=== PATIENT | female | born 1965 | race African-American/Black ===

== ENCOUNTER 2018-11-27 21:27 | Emergency (ER) | payer OTHER ==
[2018-11-27 21:47] LABS: Urine Blood NEGATIVE (NEG); Urine Glucose NEGATIVE (NEG); Urine Protein NEGATIVE (NEG); Urine Specific Gravity 1.015 (1.005-1.030)
[2018-11-27 22:30] LABS: Protime INR 1.02
[2018-11-27 22:40] LABS: Absolute Lymphocytes (CBC) 2.4 K/uL (0.7-4.9); Basophils % 0.3 % (0-1.3); Hematocrit 41.2 % (36.0-45.0); MPV 9.7 fL (7.6-11.3); RBC Red Blood Cell Count 4.56 M/uL (3.86-4.86)
[2018-11-27 22:41] LABS: BUN Blood Urea Nitrogen 5 mg/dL (7-18); Bicarbonate 24 mmol/L (21-32); Glucose Level 149 mg/dL (74-106); Potassium 3.9 mmol/L (3.5-5.1); Sodium Level 140 mmol/L (136-145)
[2018-11-27 23:20] LABS: Blood Morphology Comment NOT SEEN (NOT SEEN); Platelet Estimate ADEQ
--- NOTE | 2018-11-27 23:39 | ER ---
Nurse's Notes [facility] Name: Rose Sheppard Age: 53 yrs Sex: Female : 1965 Arrival Date: 11/27/2018 Time: 21:28 Bed 15 Private MD: Diagnosis: periperhal neuropathy Presentation: 11/27 21:20 Presenting complaint: EMS states: "We were called from [facility] because patient cc3 started to have tingling sensation to her left arm and left leg at 1530H this afternoon, patient denies weakness" Patient said her tingling sensation is lessened now, feels better and she walked with steady gait from EMS stretcher to bed. Transition of care: [facility]. Onset of symptoms was November 27, 2018 at 15:30. Risk Assessment: Do you want to hurt yourself or someone else? Patient reports no desire to harm self or others. Initial Sepsis Screen: Does the patient meet any 2 criteria? No. Patient's initial sepsis screen is negative. Does the patient have a suspected source of infection? No. Patient's initial sepsis screen is negative. Care prior to arrival: None. 21:20 Method Of Arrival: EMS: [facility] cc3 21:20 Acuity: TYREE 3 cc3 21:20 No acute neurological deficit is noted. The patients blood glucose was checked before cc3 arriving to the hospital and was found to be normal. Triage Assessment: 21:20 General: Appears in no apparent distress. comfortable, Behavior is calm, cooperative, cc3 appropriate for age. Pain: Denies pain. EENT: No signs and/or symptoms were reported regarding the EENT system. Neuro: Level of Consciousness is awake, alert, obeys commands, Oriented to person, place, time, situation, Appropriate for age Chemist are equal bilaterally Moves all extremities. Full function Gait is steady, Speech is normal, Facial symmetry appears normal, Pupils are PERRLA, Intact. Cardiovascular: Denies chest pain, Heart tones S1 S2 present Capillary refill < 3 seconds Patient's skin is warm and dry. Rhythm is sinus rhythm. Respiratory: Airway is patent Respiratory effort is even, unlabored, Respiratory pattern is regular, symmetrical. GI: Abdomen is round non-distended. : No signs and/or symptoms were reported regarding the genitourinary system. Derm: Skin is intact, is healthy with good turgor, Skin is normal, black. Musculoskeletal: Circulation, motion, and sensation intact. Range of motion: intact in all extremities. 21:20 The onset of the patients symptoms was November 27, 2018 at 15:30. Neuro: Reports cc3 tingling sensation to left arm and left leg that started at 1530H today but no weakness. 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 N/A - Hysterectomy cc3 Stroke Activation: Physician: Stroke Attending; Name: ; Notified At: ; Arrived At: Physician: Chief Stroke Resident; Name: ; Notified At: ; Arrived At: Physician: Stroke Resident; Name: ; Notified At: ; Arrived At: Physician: ED Attending; Name: ; Notified At: ; Arrived At: Physician: ED Resident; Name: ; Notified At: ; Arrived At: 21:20 N/A cc3 Historical: - Allergies: 21:20 PENICILLINS; cc3 - Home Meds: 21:20 Metformin Oral [Active]; Lantus Sub-Q [Active]; Humalog Sub-Q [Active]; Wellbutrin Oral cc3 [Active]; - PMHx: 21:20 Diabetes - IDDM; Schizophrenia; cocaine abuse - last use was 11/07/18; cc3 - PSHx: 21:20 Hysterectomy; cc3 - Immunization history:: Adult Immunizations up to date. - Social history:: Smoking status: Patient uses tobacco products, denies chronic smoking, but will smoke occasionally. - Ebola Screening: : No symptoms or risks identified at this time. Screenin:20 Abuse screen: Denies threats or abuse. Denies injuries from another. Nutritional cc3 screening: No deficits noted. Tuberculosis screening: No symptoms or risk factors identified. Fall Risk Ambulatory Aid- None/Bed Rest/Nurse Assist (0 pts). Gait- Normal/Bed Rest/Wheelchair (0 pts) Mental Status- Oriented to own ability (0 pts). Assessment: 21:20 General: see triage assessment. cc3 21:20 Patient has been NPO before screening. The patient is alert, and able to follow cc3 commands. The patient does not exhibit slurred or garbled speech. The patient is not exhibiting difficulty speaking. The patient does not exhibit difficulty understanding words. The patient is able to swallow own secretions with no drooling or need for suction. Patient tolerated one teaspoon of water. No drooling, immediate coughing, gurgling, or clearing of the throat was noted. The patient tolerated 90mL of water. No drooling, immediate coughing, gurgling, or clearing of the throat was noted. The patient passed the bedside swallow screening. Oral medications may be given as ordered. Contact Physician for further diet orders. Provider notified of bedside swallow screening results: Mart Albrecht MD. 21:20 VAN Scoring: Arm Drift: Patients demonstrates NO arm weakness. Patient is VAN Negative. cc3 Visual Disturbance: No visual disturbance noted. Aphasia: No aphasia noted. Neglect: No neglect noted. T-PA (Activase) Screening: Contraindications: Other: negative symptoms. 22:25 Reassessment: Patient appears in no apparent distress at this time. Patient and/or cc3 family updated on plan of care and expected duration. Pain level reassessed. Patient is alert, oriented x 3, equal unlabored respirations, skin warm/dry/pink. Patient denies pain at this time. 23:50 Reassessment: Patient appears in no apparent distress at this time. Patient and/or cc3 family updated on plan of care and expected duration. Pain level reassessed. Patient is alert, oriented x 3, equal unlabored respirations, skin warm/dry/pink. Dr. Albrecht discharged the patient home, no prescription given. IV cannula removed, ase certified technician Santana said she already called [facility] and spoke with staff named Soni and informed her that the patient is discharged home and needs transport going back there and they said they'll provide patient transport, patient and her friend Tete informed and said they'll wait for their transport in the waiting area. Patient left ER to wait for her transport in the [facility] vitally stable and ambulatory with her friend. No valuables left in the patient's room. Patient denies pain at this time. Patient states feeling better. Patient states symptoms have improved. Vital Signs: 21:20 BP 153 / 104; Pulse 77; Resp 17 S; Temp 98.1(O); Pulse Ox 100% on R/A; Weight 64.41 kg cc3 (R); Height 5 ft. 3 in. (160.02 cm) (R); Pain 0/10; 22:25 BP 143 / 108; Pulse 78; Resp 19 S; Pulse Ox 100% on R/A; cc3 22:35 BP 106 / 93; Pulse 73; Resp 13 S; Pulse Ox 100% on R/A; cc3 23:30 BP 138 / 86; Pulse 72; Resp 17 S; Pulse Ox 100% on R/A; cc3 21:20 Body Mass Index 25.15 (64.41 kg, 160.02 cm) cc3 Castro Coma Score: 11/28 04:56 Eye Response: spontaneous(4). Verbal Response: oriented(5). Motor Response: obeys tw4 commands(6). Total: 15. NIH Stroke Scale Scores: 11/27 21:20 NIHSS Score: 0 cc3 21:20 NIHSS Score: 0 cc3 ED Course: 21:20 Patient has correct armband on for positive identification. Placed in gown. Bed in low cc3 position. Call light in reach. Side rails up X2. long chain beamer on. Pulse ox on. NIBP on. 21:20 Arm band placed on right wrist. EKG completed in triage. Results shown to MD. cc3 21:28 Patient arrived in ED. ds1 21:28 Mart Albrecht MD is Attending Physician. tw4 21:32 Sheron Ledesma is Primary Nurse. cc3 21:45 Triage completed. cc3 21:53 CT completed. Patient tolerated procedure well. Patient moved back from CT. mw3 21:56 CT Stroke Brain w/o Contrast In Process Unspecified. EDMS 22:08 Stroke CXR 1 View In Process Unspecified. EDMS 22:15 Inserted saline lock: 22 gauge in left antecubital area, using aseptic technique. Blood cc3 collected. 23:50 No provider procedures requiring assistance completed. IV discontinued, intact, cc3 bleeding controlled, No redness/swelling at site. Pressure dressing applied. Administered Medications: No medications were administered Point of Care Testing: Blood Glucose: 22:03 Blood Glucose: 148 mg/dL; cc3 Ranges: Outcome: 23:38 Discharge ordered by . tw4 23:50 Discharged to home ambulatory, with friend. cc3 23:50 Condition: stable 23:50 Discharge instructions given to patient, Instructed on discharge instructions, follow up and referral plans. Demonstrated understanding of instructions, follow-up care. 23:59 Patient left the ED. cc3 NIH Stroke Scale - NIH Stroke Score Date: 11/27/2018 Time: 21:20 Total Score = 0 1a. Level of Consciousness (LOC) - 0(Alert) 1b. Level of Consciousness (LOC) (Year \\T\\ Age) - 0(Both) 1c. LOC Commands (Open \\T\\ Closes Eyes/Engine Turner) - 0(Both) 2. Best Gaze (Lateral Gaze Paresis) - 0(Normal) 3. Visual Field Loss - 0(No visual loss) 4. Facial Palsy - 0(Normal) 5a. Left Arm: Motor (10-second hold) - 0(No drift) 5b. Right Arm: Motor (10-second hold) - 0(No drift) 6a. Left Leg: Motor (5-second hold - always test supine) - 0(No drift) 6b. Right Leg: Motor (5-second hold - always test supine) - 0(No drift) 7. Limb Ataxia (finger/nose \\T\\ heel/guzmán - test with eyes open) - 0(Absent) 8. Sensory Loss (pinprick arms/legs/face) - 0(Normal) 9. Best Language: Aphasia (description/naming/reading) - 0(No aphasia) 10. Dysarthria (speech clarity - read or repeat words) - 0(Normal) 11. Extinction and Inattention (visual/tactile/auditory/spatial/personal) - 0(No abnormality) Initials: cc3 NIH Stroke Scale - NIH Stroke Score Date: 11/27/2018 Time: 21:20 Total Score = 0 1a. Level of Consciousness (LOC) - 0(Alert) 1b. Level of Consciousness (LOC) (Year \\T\\ Age) - 0(Both) 1c. LOC Commands (Open \\T\\ Closes Eyes/Engine Turner) - 0(Both) 2. Best Gaze (Lateral Gaze Paresis) - 0(Normal) 3. Visual Field Loss - 0(No visual loss) 4. Facial Palsy - 0(Normal) 5a. Left Arm: Motor (10-second hold) - 0(No drift) 5b. Right Arm: Motor (10-second hold) - 0(No drift) 6a. Left Leg: Motor (5-second hold - always test supine) - 0(No drift) 6b. Right Leg: Motor (5-second hold - always test supine) - 0(No drift) 7. Limb Ataxia (finger/nose \\T\\ heel/guzmán - test with eyes open) - 0(Absent) 8. Sensory Loss (pinprick arms/legs/face) - 0(Normal) 9. Best Language: Aphasia (description/naming/reading) - 0(No aphasia) 10. Dysarthria (speech clarity - read or repeat words) - 0(Normal) 11. Extinction and Inattention (visual/tactile/auditory/spatial/personal) - 0(No abnormality) Initials: cc3 Signatures: Dispatcher [employer] [facility] Miranda Reyna ds1 Mart Albrecht MD MD tw4 Gabriela Martin mw3 Sheron Ledesma cc3
--- NOTE | 2018-11-27 23:40 | EDPHYS ---
Physician Documentation [facility] Name: Rose Sheppard Age: 53 yrs Sex: Female : 1965 Arrival Date: 11/27/2018 Time: 21:28 Bed 15 Private MD: ED Physician Mart Albrecht HPI: 11/28 04:38 This 53 yrs old Black Female presents to ER via EMS with complaints of tingling tw4 sensation to her left arm and leg. 04:38 The patient presents to the emergency department with paresthesias of the left lower tw4 extremity, that is mild, left upper extremity, that is mild. Onset: The symptoms/episode began/occurred 6 hour(s) ago, and improved today. Context: occurred at home. Associated signs and symptoms: The patient has no apparent associated signs or symptoms. Severity of symptoms: At their worst the symptoms were very mild in the emergency department the symptoms have resolved and did so earlier today, have improved. Patient's baseline: Neuro: alert and fully oriented, Motor: no deficits, Ambulation: walks without assistance, Speech: normal. Current symptoms: Currently, the patient is not experiencing any symptoms, the patient feels back to baseline, no decreased level of consciousness, no confusion, no dysphasia, no headache, no paralysis, no visual changes. The patient has not experienced similar symptoms in the past. 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 - Social history:: Smoking status: Patient uses tobacco products, denies chronic smoking, but will smoke occasionally. - Ebola Screening: : No symptoms or risks identified at this time. ROS: 11/28 04:38 Constitutional: Negative for fever, chills, and weight loss, Eyes: Negative for injury, tw4 pain, redness, and discharge, Cardiovascular: Negative for chest pain, palpitations, and edema, Respiratory: Negative for shortness of breath, cough, wheezing, and pleuritic chest pain, Back: Negative for injury and pain. 04:38 MS/Extremity: Negative for injury and deformity, Skin: Negative for injury, rash, and tw4 discoloration. 04:38 Neuro: Positive for tingling, Negative for altered mental status, dizziness, gait disturbance, headache, speech changes, syncope, near syncope, visual changes, weakness. Exam: 04:38 Constitutional: This is a well developed, well nourished patient who is awake, alert, tw4 and in no acute distress. Head/Face: Normocephalic, atraumatic. Chest/axilla: Normal chest wall appearance and motion. Nontender with no deformity. No lesions are appreciated. Cardiovascular: Regular rate and rhythm with a normal S1 and S2. No gallops, murmurs, or rubs. Normal PMI, no JVD. No pulse deficits. Respiratory: Lungs have equal breath sounds bilaterally, clear to auscultation and percussion. No rales, rhonchi or wheezes noted. No increased work of breathing, no retractions or nasal flaring. Abdomen/GI: Soft, non-tender, with normal bowel sounds. No distension or tympany. No guarding or rebound. No evidence of tenderness throughout. Back: No spinal tenderness. No costovertebral tenderness. Full range of motion. Skin: Warm, dry with normal turgor. Normal color with no rashes, no lesions, and no evidence of cellulitis. MS/ Extremity: Pulses equal, no cyanosis. Neurovascular intact. Full, normal range of motion. Neuro: Awake and alert, GCS 15, oriented to person, place, time, and situation. Cranial nerves II-XII grossly intact. Motor strength 5/5 in all extremities. Sensory grossly intact. Cerebellar exam normal. Normal gait. Vital Signs: 11/27 21:20 BP 153 / 104; Pulse 77; Resp 17 S; Temp 98.1(O); Pulse Ox 100% on R/A; Weight 64.41 kg cc3 (R); Height 5 ft. 3 in. (160.02 cm) (R); Pain 0/10; 22:25 BP 143 / 108; Pulse 78; Resp 19 S; Pulse Ox 100% on R/A; cc3 22:35 BP 106 / 93; Pulse 73; Resp 13 S; Pulse Ox 100% on R/A; cc3 23:30 BP 138 / 86; Pulse 72; Resp 17 S; Pulse Ox 100% on R/A; cc3 21:20 Body Mass Index 25.15 (64.41 kg, 160.02 cm) cc3 NIH Stroke Scale Scores: 21:20 NIHSS Score: 0 cc3 21:20 NIHSS Score: 0 cc3 Erie Coma Score: 11/28 04:56 Eye Response: spontaneous(4). Verbal Response: oriented(5). Motor Response: obeys tw4 commands(6). Total: 15. MDM: 11/27 21:34 Patient medically screened. tw4 11/28 04:38 Data reviewed: vital signs, nurses notes. Data interpreted: Pulse oximetry: tw4 Interpretation: normal. Counseling: I had a detailed discussion with the patient and/or guardian regarding: the historical points, exam findings, and any diagnostic results supporting the discharge/admit diagnosis. Special discussion: I discussed with the patient/guardian in detail that at this point there is no indication for admission to the hospital. It is understood, however, that if the symptoms persist or worsen the patient needs to return immediately for re-evaluation. 04:56 ED course: CT head negative. tw4 11/27 21:33 Order name: Basic Metabolic Panel tw4 11/27 21:33 Order name: CBC with Diff; Complete Time: 23:32 tw4 11/27 23:33 Interpretation: Normal except: LYM% 46.0. tw4 11/27 21:33 Order name: Protime (+inr); Complete Time: 23:32 tw4 11/27 23:33 Interpretation: Within normal limits: PT 12.0. tw4 11/27 21:33 Order name: Ptt, Activated; Complete Time: 23:32 tw4 11/27 23:35 Interpretation: Within normal limits. tw4 11/27 21:34 Order name: Basic Metabolic Panel; Complete Time: 23:32 EDMS 11/27 23:33 Interpretation: Normal except: CL 108; GLUC 149; BUN 5. tw4 11/27 21:43 Order name: Urine Dipstick--Ancillary (enter results); Complete Time: 23:32 mt 11/27 23:33 Interpretation: Normal except: UESTR 3+. 11/27 21:33 Order name: CT Stroke Brain w/o Contrast 11/27 21:33 Order name: Stroke CXR 1 View 11/27 21:33 Order name: Accucheck; Complete Time: 22:04 tw4 11/27 21:33 Order name: Cardiac monitoring; Complete Time: 21:55 4 11/27 21:33 Order name: EKG - Nurse/Tech; Complete Time: 21:55 4 11/27 21:33 Order name: IV Saline Lock; Complete Time: 22:23 tw4 11/27 22:42 Order name: Manual Differential; Complete Time: 23:32 EDMS 11/27 23:33 Interpretation: Normal except: SEGS 36; LYM 50. 11/27 21:33 Order name: Labs collected and sent; Complete Time: 22:23 tw4 11/27 21:33 Order name: NPO; Complete Time: 21:55 4 11/27 21:33 Order name: O2 Per Protocol; Complete Time: 21:55 4 11/27 21:33 Order name: O2 Sat Monitoring; Complete Time: 21:56 11/27 21:33 Order name: Stroke Swallow Screen; Complete Time: 22:00 tw4 EC:56 Rate is 73 beats/min. Rhythm is regular, Normal Sinus Rhythm. Left axis deviation tw4 noted. DE interval is normal. QRS interval is normal. QT interval is normal. No Q waves. T waves are Normal. No ST changes noted. Clinical impression: NSR w/ Non-specific ST/T Changes. Interpreted by me. Reviewed by me. Administered Medications: No medications were administered Point of Care Testing: Blood Glucose: 11/27 22:03 Blood Glucose: 148 mg/dL; cc3 Ranges: Critical Glucose Levels:Adult <50 mg/dl or >400 mg/dl <40 mg/dl or >180 mg/dl Disposition: 11/27/18 23:38 Discharged to Home. Impression: periperhal neuropathy. - Condition is Stable. - Discharge Instructions: Diabetic Neuropathy, Focal Neuropathy. - Medication Reconciliation Form, Thank You Letter, Antibiotic Education, Prescription Opioid Use form. - Follow up: Private Physician; When: Upon discharge from the Emergency Department; Reason: If symptoms return, Recheck today's complaints, Continuance of care. - Problem is new. - Symptoms have improved. NIH Stroke Scale - NIH Stroke Score Date: 11/27/2018 Time: 21:20 Total Score = 0 1a. Level of Consciousness (LOC) - 0(Alert) 1b. Level of Consciousness (LOC) (Year \T\ Age) - 0(Both) 1c. LOC Commands (Open \T\ Closes Eyes/Shop Girl) - 0(Both) 2. Best Gaze (Lateral Gaze Paresis) - 0(Normal) 3. Visual Field Loss - 0(No visual loss) 4. Facial Palsy - 0(Normal) 5a. Left Arm: Motor (10-second hold) - 0(No drift) 5b. Right Arm: Motor (10-second hold) - 0(No drift) 6a. Left Leg: Motor (5-second hold - always test supine) - 0(No drift) 6b. Right Leg: Motor (5-second hold - always test supine) - 0(No drift) 7. Limb Ataxia (finger/nose \T\ heel/guzmán - test with eyes open) - 0(Absent) 8. Sensory Loss (pinprick arms/legs/face) - 0(Normal) 9. Best Language: Aphasia (description/naming/reading) - 0(No aphasia) 10. Dysarthria (speech clarity - read or repeat words) - 0(Normal) 11. Extinction and Inattention (visual/tactile/auditory/spatial/personal) - 0(No abnormality) Initials: cc3 NIH Stroke Scale - NIH Stroke Score Date: 11/27/2018 Time: 21:20 Total Score = 0 1a. Level of Consciousness (LOC) - 0(Alert) 1b. Level of Consciousness (LOC) (Year \T\ Age) - 0(Both) 1c. LOC Commands (Open \T\ Closes Eyes/Shop Girl) - 0(Both) 2. Best Gaze (Lateral Gaze Paresis) - 0(Normal) 3. Visual Field Loss - 0(No visual loss) 4. Facial Palsy - 0(Normal) 5a. Left Arm: Motor (10-second hold) - 0(No drift) 5b. Right Arm: Motor (10-second hold) - 0(No drift) 6a. Left Leg: Motor (5-second hold - always test supine) - 0(No drift) 6b. Right Leg: Motor (5-second hold - always test supine) - 0(No drift) 7. Limb Ataxia (finger/nose \T\ heel/guzmán - test with eyes open) - 0(Absent) 8. Sensory Loss (pinprick arms/legs/face) - 0(Normal) 9. Best Language: Aphasia (description/naming/reading) - 0(No aphasia) 10. Dysarthria (speech clarity - read or repeat words) - 0(Normal) 11. Extinction and Inattention (visual/tactile/auditory/spatial/personal) - 0(No abnormality) Initials: cc3 Signatures: Dispatcher [employer] Mart Solitario MD MD tw4 Sheron Ledesma cc3 Corrections: (The following items were deleted from the chart) 23:59 23:38 11/27/2018 23:38 Discharged to Home. Impression: periperhal neuropathy. cc3 Condition is Stable. Forms are Medication Reconciliation Form, Thank You Letter, Antibiotic Education, Prescription Opioid Use. Follow up: Private Physician; When: Upon discharge from the Emergency Department; Reason: If symptoms return, Recheck today's complaints, Continuance of care. Problem is new. Symptoms have improved. 4 11/28 04:40 04:38 The patient presents to the emergency department with paresthesias of the 4 left side of the face, that is mild, tw4 :40 04:38 Onset: The symptoms/episode began/occurred today, tw4 tw4 :40 04:38 Context: occurred at home, [place] [id number] 04:40 04:38 Associated signs and symptoms: The patient has no apparent associated [facility] signs or symptoms, tw :40 04:38 Severity of symptoms: At their worst the symptoms were mild in the [facility] emergency department the symptoms are unchanged tw4 :40 04:38 The patient has not experienced similar symptoms in the past, [place] [id number]
--- NOTE | 2018-11-28 08:29 | RAD REPORT ---
EXAM DESCRIPTION: RAD - Chest Single View - 11/27/2018 10:09 pm CLINICAL HISTORY: Left arm pain and tingling, Stroke protocol chest film COMPARISON: None. TECHNIQUE: AP portable chest image was obtained 2207 hours . FINDINGS: Lungs are clear. Heart and vasculature are normal. No measurable pleural effusion and no p neumothorax. No acute bony abnormality seen. No acute aortic findings suspected. IMPRESSION: No acute cardiopulmonary process.
--- NOTE | 2018-11-28 09:32 | RAD REPORT ---
EXAM DESCRIPTION: CT - Ct Stroke Brain Wo Cont - 11/27/2018 11:05 pm ADDENDUM #1 THIS REPORT CONTAINS FINDINGS THAT MAY BE CRITICAL TO PATIENT CARE: The findings were verbally discussed via telephone conference with Dr. Mart Albrecht by Dr. Gabrielle Alberto on 11/27/2018 10:04 PM CDT .The results were acknowledged and understood. Electronically signed by: Deana Alberto MD 11/27/2018 10:05 PM CDT End of Addendum EXAM DESCRIPTION: CT Head Without Intravenous Contrast CLINICAL HISTORY: The patient is 53 years old and is Female; paresthesia TECHNIQUE: Axial computed tomography images of the head/brain without intravenous contrast. Sagitt al and coronal reformatted images were created and reviewed. This CT exam was performed using one o r more of the following dose reduction techniques: automated exposure control, adjustment of the mA and/or kV according to patient size, and/or use of iterative reconstruction technique. COMPARISON: No relevant prior studies available. FINDINGS: BRAIN: Minimal bilateral basal ganglia calcifications are present. The harvey-white differ entiation is maintained. There is no intracranial hemorrhage, mass effect, or midline shift. There ar e no extra-axial fluid collections. There is no cerebral edema. VENTRICLES: Unremarkable. No ventriculomegaly. BONES/JOINTS: No acute fracture. SOFT TISSUES: Unremarkable. SINUSES: Unremarkable as visualized. No acute sinusitis. MASTOID AIR CELLS: Unremarkable as visualized. No mastoid effusion. IMPRESSION: No acute intracranial findings. Electronically signed by: Deana Alberto MD 11/27/2018 10:01 PM CDT Due to temporary technical issues with the PACS/Fluency reporting system, reports are being signed by the in house radiologist as a courtesy to ensure prompt reporting. The interpreting radiologist is f ully responsible for the content of the report.
== END 2018-11-27 23:59 | disposition home or self-care (01) ==
LOC: EDBD 21:27 → ER 21:27
DX: E11.42 Type 2 diabetes mellitus with diabetic polyneuropathy (principal); Z72.0 Tobacco use; Z79.4 Long term (current) use of insulin; Z88.0 Allergy status to penicillin
CPT/HCPCS: 36415; 70450; 71045; 80048; 81003; 82962; 85025; 85610; 85730